=== PATIENT | female | born 1950 | race Caucasian/White ===

== ENCOUNTER → 2016-09-19 08:41 | Outpatient (CLI) | payer MEDICARE, OTHER ==
[2015-05-10 10:08] VITALS: BMI 33.8
[~2016-09-19 08:41] MED LIST: CYMBALTA60 MG PO; GLUCOPHAGE500 MG PO; HYDROCHLOROTH12.5 M1 PO; LEVOXYL175 MCG PO; PRILOSEC20 MG PO; ULTRAM50 MG PO; VITAMIN D31000 UNIT PO; ZANAFLEX4 MG; ZOCOR40 MG PO
== END | disposition home or self-care (01) ==
LOC: D.CT 08:41
DX: D35.00 Benign neoplasm of unspecified adrenal gland (principal)

== ENCOUNTER → 2017-02-21 12:18 | Outpatient (CLI) | payer MEDICARE, OTHER ==
[2015-05-10 10:08] VITALS: BMI 33.8
== END | disposition home or self-care (01) ==
LOC: D.CT 12:18
DX: I73.9 Peripheral vascular disease, unspecified (principal)

== ENCOUNTER → 2017-08-02 14:09 | Outpatient (CLI) | payer MEDICARE, OTHER ==
[2015-05-10 10:08] VITALS: BMI 33.8
== END | disposition home or self-care (01) ==
LOC: D.CT 14:09
DX: R10.32 Left lower quadrant pain (principal)

== ENCOUNTER → 2017-10-15 15:16 | Outpatient (CLI) | payer MEDICARE, OTHER ==
[2015-05-10 10:08] VITALS: BMI 33.8
[2017-10-19 12:12] LABS: META PL - METANEPHRINE 11 pg/mL (0-62); META PL - NORMETANEPHRINE 131 pg/mL (0-145)
== END | disposition home or self-care (01) ==
LOC: D.LAB 15:16
PROVIDERS: Urology
DX: D35.00 Benign neoplasm of unspecified adrenal gland (principal)

== ENCOUNTER → 2019-07-15 12:00 | Outpatient (CLI) | payer MEDICARE, OTHER ==
[2015-05-10 10:08] VITALS: BMI 33.8
== END | disposition home or self-care (01) ==
LOC: D.MAMMO 10:30
PROVIDERS: ATTEND Family Medicine
DX: R92.8 Other abnormal and inconclusive findings on diagnostic imaging of breast (principal)

== ENCOUNTER → 2019-07-23 09:56 | Outpatient (CLI) | payer MEDICARE, OTHER ==
[2015-05-10 10:08] VITALS: BMI 33.8
== END | disposition home or self-care (01) ==
LOC: D.US 09:56
PROVIDERS: ATTEND Family Medicine
DX: R92.8 Other abnormal and inconclusive findings on diagnostic imaging of breast (principal)

== ENCOUNTER 2020-04-30 14:33 | Emergency (ER) | payer MEDICARE, OTHER ==
[~2020-04-30] VITALS: Ht 172.7 cm; Wt 90.9 kg
[2020-04-30 14:38] VITALS: Ht 172.7 cm; Wt 90.9 kg
[2020-04-30] MEDS ORDERED: LISINOPRIL40 MG PO (14:40)
[2020-04-30] MEDS ORDERED: GLUCOTROL ER2.5 MG PO (14:41)
[2020-04-30] MEDS ORDERED: NORVASC5 MG PO (14:41)
[2020-04-30] MEDS ORDERED: FEMARA2.5 MG PO (14:42)
[2020-04-30 15:18] LABS: BASOPHILS 0.2 % (0-2); EOSINOPHILS 2.7 % (0-7); HEMATOCRIT 41.7 % (36.0-48.0); HEMOGLOBIN 13.9 g/dL (12-16); IMMATURE GRANULOCYTES 0.5 % (0-5); LYMPHOCYTES 5.3 % (15-50); MCHC 33.3 g/dL (31.0-37.0); MCV 90.1 fL (80.0-100.0); MEAN PLATELET VOLUME 10.9 fL (7.4-10.4); MONOCYTES 5.7 % (2-11); NEUTROPHILS 85.6 % (40-80); PLATELET COUNT 224 10x3/uL (130-400); RBC 4.63 10x6/uL (4.00-5.40); RDW 13.4 % (11.5-14.5); WBC 14.9 10x3/uL (4.8-10.8)
[2020-04-30 15:36] LABS: ALBUMIN 3.1 g/dL (3.4-5.0); ANION GAP 17.3 mmol/L (8-16); BILIRUBIN - TOTAL 1.08 mg/dL (0.2-1.3); CALCIUM 9.2 mg/dL (8.5-10.1); CARBON DIOXIDE 23.3 mmol/L (21.0-32.0); CREATININE - SERUM 1.3 mg/dL (0.6-1.3); POTASSIUM - SERUM 4.6 mmol/L (3.5-5.1); PROTEIN - SERUM 6.1 g/dL (6.4-8.2)
[2020-04-30] MEDS ORDERED: HYDROCODON-ACE1 EAC7 PO (16:21)
[2020-04-30] MEDS ORDERED: ATARAX 25 MG TA25 MG PO (16:21)
[2020-04-30] MEDS ORDERED: CLEOCIN HCL300 MG PO (16:21)
[2020-04-30 16:30] VITALS: BP 122/52
== END 2020-04-30 16:45 | disposition home or self-care (01) ==
LOC: D.ER 14:33
PROVIDERS: Family Medicine
DX: T78.49XA Other allergy, initial encounter (principal); L03.90 Cellulitis, unspecified; E11.9 Type 2 diabetes mellitus without complications; R21 Rash and other nonspecific skin eruption; E03.9 Hypothyroidism, unspecified; I11.0 Hypertensive heart disease with heart failure; I50.9 Heart failure, unspecified; Z79.84 Long term (current) use of oral hypoglycemic drugs